=== PATIENT | male | born 1950 | race Caucasian/White ===

== ENCOUNTER 2016-11-29 23:18 | Emergency (ER) | payer MEDICARE, OTHER ==
[2016-11-29 23:56] LABS: Hematocrit 46.7 % (42.0-52.0); Hemoglobin 16.4 gm/dL (13.5-18.0); Mean Cell Volume 88.8 fl (78-100); Mean Corpuscular Hemoglobin 31.2 pg (27-31); Mean Corpuscular Hgb Conc 35.1 g/dl (32-36); Mean Platelet Volume 8.9 fl (6.0-9.5); Neutrophil # 3.6 K/mm3 (1.3-6.0); Neutrophil % 48.5 % (42-75.0); Platelet Count 236 K/mm3 (150-450); Red Blood Count 5.26 M/mm3 (4.7-6.0); Red Cell Distribution Width 13.5 % (11.5-14.0); White Blood Count 7.5 K/mm3 (4.0-10.5)
[2016-11-30 00:07] LABS: Prothrombin Time (Patient) 10.8 Seconds (9.4-11.4)
[2016-11-30 00:15] LABS: INR 1.04 INR (0.90-1.10); Partial Thrombolplastin Time 26.1 Seconds (24-32)
[2016-11-30 00:16] LABS: ALT 39 U/L (19-67); AST 23 U/L (0-48); Albumin * 3.2 gm/dl (3.4-5.0); Alkaline Phosphatase * 56 U/L (50-170); Anion Gap 6.7 mmol/L (6.8-13.8); BUN/Creatinine Ratio 9.8 (9.0-21.6); Bilirubin, Total 0.4 mg/dL (0.0-1.1); Blood Urea Nitrogen 13 mg/dL (6-23); Ca. Corrected For Albumin 9.4 mg/dL (8.4-10.2); Calcium * 9.1 mg/dL (7.9-10.9); Carbon Dioxide 33.5 mmol/L (24-32.6); Chloride 104 mmol/L (97-106); Glucose * 116 mg/dL (70-110); Potassium 3.2 mmol/L (3.4-4.6); Sodium 141 mmol/L (132-142); Total Protein 6.8 gm/dL (6.2-8.2); Troponin I Less than 0.017 ng/ml (0.00-0.10)
--- NOTE | 2016-11-30 00:55 | ERNOTE ---
Medical Problem HPI - General Chief Complaint: General Assessment Time Seen by Provider: 11/30/16 00:38 Source: patient, family Exam Limitations: no limitations - Immun/Allergies/Home Medications Immunizations: IMMUNIZATION HX Immunizations Up to Date Yes History of Influenza Vaccine Yes Hx Pneumococcal Vaccination Yes Allergies/Adverse Reactions: Allergies adhesive Adverse Reaction (Verified 11/29/16 23:28) Home Medications: HOME MEDICATIONS Amlodipine Besylate 10 mg PO DAILY 11/29/16 [Last Taken Unknown] Aspirin [Aspirin Chewable] 81 mg PO DAILY 11/29/16 [Last Taken Unknown] Fluticasone Propionate [Flovent Diskus] 1 puff IH DAILY 11/29/16 [Last Taken Unknown] Hydrochlorothiazide [Hydrodiuril] 25 mg PO DAILY 11/29/16 [Last Taken Unknown] Metoprolol Tartrate 50 mg PO DAILY 11/29/16 [Last Taken Unknown] Rosuvastatin Calcium 40 mg PO DAILY 11/29/16 [Last Taken Unknown] Sildenafil Citrate [Viagra] 100 mg PO PRN 11/29/16 [Last Taken Unknown] Venlafaxine HCl [Effexor Xr] 150 mg PO DAILY 11/29/16 [Last Taken Unknown] buPROPion HCL [Wellbutrin] 100 mg PO DAILY 11/29/16 [Last Taken Unknown] - History of Present History Narrative: pt feels short of breath just before he falls asleep (not when he lays down) and believes his heart rate is going down. He then has a panic attack and cannot sleep. he has not slept for 3 days Timing: getting worse Severity: moderate Review of Systems - Review of Systems Constitutional: Absent: recent illness, fever EYE: Present: no symptoms reported ENT: Present: no symptoms reported Respiratory: Present: See HPI, shortness of breath. Absent: cough, wheezing Cardiology: Absent: chest pain Gastrointestinal/Abdominal: Present: no symptoms reported Genitourinary: Present: no symptoms reported Musculoskeletal: Present: no symptoms reported Skin: Present: no symptoms reported Neurological: Absent: dizziness/light-headedness, weakness, numbness Endocrine: Present: no symptoms reported Hematologic/Lymphatic: Present: no symptoms reported Psych: Present: See HPI - Patient's Past Medical History Patient History - Medical: Depression Patient History - Cardiac/Respiratory: Coronary Heart Disease, Hypertension, Hyperlipidemia Patient History - Cancer: No Hx of Cancer - Social History Living Situations: home Smoking Status: Former smoker - Immunizations Immunizations Up to Date: Yes Hx Pneumococcal Vaccination: Yes History of Influenza Vaccine: Yes Physical Exam - Physical Exam General Appearance: Present: wd/wn, alert, no apparent distress Eye Exam: Normal inspection: bilateral, PERRL: bilateral Ears, Nose, Throat: Present: normal ENT inspection Neck: Present: normal inspection, nontender Respiratory: Present: no respiratory distress, normal breath sounds, lungs clear Cardiovascular/Chest: Present: regular rate, rhythm, no murmur Gastrointestinal/Abdominal: Present: normal bowel sounds, nontender, nondistended Extremity Exam: Present: normal inspection, normal range of motion, no edema Neurological Exam: Present: alert, oriented, normal mood/affect Skin Exam: Present: normal color, warm/dry ED Progress - Results and Orders Patient's Lab Results:: I have reviewed the patient's lab results. Results and Orders: Laboratory Tests 11/29/16 11/29/16 11/29/16 23:50 23:50 23:50 WBC 7.5 Hgb 16.4 Hct 46.7 Plt Count 236 PT 10.8 INR (Anticoag Therapy) 1.04 PTT ([place]) 26.1 Sodium 141 Potassium 3.2 L Chloride 104 Carbon Dioxide 33.5 H Anion Gap 6.7 L BUN 13 Creatinine 1.33 Est GFR (Non-Af Amer) 57 L BUN/Creatinine Ratio 9.8 Random Glucose 116 H Calcium 9.1 Calcium Adj for Albumin 9.4 Total Bilirubin 0.4 AST 23 ALT 39 Alkaline Phosphatase 56 Troponin I Less than 0.017 Total Protein 6.8 Albumin 3.2 L - Vital Signs Patient's Vital Signs:: I have reviewed the patient's vital signs. Vital Signs: Vital Signs 11/29/16 11/30/16 23:22 00:15 Temperature 36.9 C Pulse Rate 73 70 Respiratory 18 18 Rate Blood Pressure 187/101 174/78 O2 Sat by Pulse 95 96 Oximetry - X-Ray X-Ray #1 X-Ray: chest Interpretation: Interp. 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 Return to ER as needed
--- OUTSIDE RECORDS SUMMARY | 2016-11-30 01:05 | XMS REPORT | Continuity of Care Document ---
:1950 Author Organization [facility] ([facility]) [place] [address] Phone [phone] Care Team Providers Name Role Phone Provider, No-Primary Care Primary Care Provider Unavailable Source Comments This disclosure is being made pursuant to the Care Everywhere program, applicable federal and state laws, and may not contain all informaitonavailable regarding this patient.[facility] ([facility]) Active Allergies and Adverse Reactions Not on File Current Medications Prescription Sig. Disp. Refills Start Date End Date Status fluticasone 50 Use 2 Sprays Active mcg/Actuation nasal spray into both nostrils daily. rosuvastatin 40 mg tablet Take 40 mg by Active mouth every evening. buPROPion 100 mg tablet Take 100 mg by Active mouth 2 times daily. hydroCHLOROthiazide 25 mg Take 25 mg by Active tablet mouth daily. sildenafil (VIAGRA) 100 mg Take 100 mg by Active tablet mouth as needed. Take 1 hour prior to sexual activity. metoPROLol tartrate 50 mg Take 50 mg by Active tablet mouth 2 times daily. aspirin 81 mg EC tablet Take 81 mg by Active mouth daily. azithromycin 250 mg tablet Take 1 tablet 4 tablet 0 09/12/2016 Active (250 mg total) by mouth every 24 hours. amoxicillin-clavulanate Take 1 tablet 18 tablet 0 09/12/2016 Active 875-125 mg per tablet by mouth 2 times daily. Active Problems Not on file Most Recent Encounters Date Type Specialty Providers Description 09/12/2016 - Hospital Encounter Kevin Lozoya, Dx: Community 09/13/2016 Specialty MD acquired pneumonia (Primary Dx) Social History Tobacco Use Types Packs/Day Years Used Date Never Assessed Last Filed Vital Signs Vital Sign Reading Time Taken Blood Pressure 166/94 09/12/2016 11:24 PM [employer] Pulse 73 09/12/2016 11:22 PM [employer] Temperature 38.8 C (101.8 F) 09/12/2016 9:55 PM [employer] Respiratory Rate 18 09/12/2016 11:22 PM [employer] Height - - Weight - - Body Mass Index - - Oxygen Saturation 94% 09/12/2016 11:22 PM [employer] Plan of Care Health Maintenance Due Date Last Done Comments HCV Screening 1950 Hepatitis B Vaccine (1 of 3 - Primary Series) 1950 Tdap Vaccine 1962 Lipid Disorder Screening 1969 Td Vaccine 1969 Colonoscopy 01/12/2001 Prostate Cancer Screening 2001 Zoster Vaccine 2011 Pneumococcal Vaccine (1 of 2 - PCV13) 01/14/2016 Influenza Vaccine: Seasonal (#1) 02/08/2016 Results from Last 3 Months [facility] XR CHEST PA& LAT (24631) (09/12/2016 10:35 PM) Impressions -NORMAL CHEST. Narrative Radiology Consultation [facility] DEPARTMENT OF RADIOLOGY [facility] [address] [place], [place] [address] IP/OP/ER: __ER___ PA & LATERAL CHEST:Normal chest. [facility] LACTIC ACID, WHOLE BLOOD (09/12/2016 10:20 PM) Component Value Range VB LACTIC ACID 1.9 0.7-2.1 mmol/L Specimen Blood [facility] TROPONIN I (09/12/2016 10:20 PM) Component Value Range VB Troponin I <0.06 0-0.6 ng/mL Specimen Blood [facility] COMPREHENSIVE METABOLIC PANEL (CMP) (09/12/2016 10:20 PM) Component Value Range [facility] Sodium 142 137-145 mmol/L [facility] Potassium 3.5 3.4-5.1 mmol/L [facility] Chloride 99 98-107 mmol/L [facility] CO2 30 20-30 mmol/L [facility] Glucose 113(H) 60-110 mg/dL [facility] BUN 15 9-20 mg/dL [facility] Creatinine 1.46(H) 0.70-1.25 mg/dL [facility] Total Protein 7.6 6.3-8.2 g/dL [facility] Calcium 9.4 8.4-10.5 mg/dL [facility] Albumin 4.1 3.0-5.0 g/dL [facility] ALP 65 36-113 U/L [facility] ALT/SGPT 35 11-47 U/L [facility] AST/SGOT 28 17-59 U/L [facility] Calculated GFR 48(L) >60 mL/min/1.73 m2 [facility] Bilirubin, Total 0.8 0.2-1.3 mg/dL Specimen Blood [facility] CBC WITH DIFFERENTIAL (09/12/2016 10:20 PM) Component Value Range [facility] WBC 10.2(H) 3.6-9.4 th/mm3 [facility] RBC 5.69(H) 4.40-5.60 mil/mm3 [facility] HEMOGLOBIN 17.6(H) 13.8-17.0 g/dL [facility] HEMATOCRIT 49.9 41.0-51.0 % [facility] MEAN CORPUSCULAR VOLUME 87.7 84.0-98.0 fl [facility] MEAN CORPUSCULAR HGB 30.9 26.0-38.0 pg [facility] MEAN CORPUSCULAR HGB CONCENTRATION 35.3 32.0-36.0 g/dL [facility] PLATELET COUNT 201 150-350 th/mm3 [facility] Abs Neutrophils 6.87 2.60-7.00 th/mm3 [facility] Abs Lymphocytes 1.78 0.70-3.40 th/mm3 [facility] Abs Monocytes 1.44(H) 0.10-1.00 th/mm3 [facility] Abs Eosinophils 0.08 0.00-0.45 th/mm3 [facility] Abs Basophils 0.04 0.00-0.12 th/mm3 [facility] % Neutrophils 67.3 34.0-67.9 % [facility] % Lymphocytes 17.4(L) 21.8-53.1 % [facility] % Monocytes 14.1 0.0-15.0 % [facility] % Eosinophils 0.8 0.0-6.0 % [facility] % Basophils 0.4 0.0-2.0 % Specimen Blood
--- OUTSIDE RECORDS SUMMARY | 2016-11-30 01:05 | XMS REPORT | Continuity of Care Document ---
:1950 Demographics Phone Unavailable Preferred Language Unknown Marital Status Unknown Jain Affiliation Unknown Race Unknown Ethnic Group Unknown Author Organization [facility] Address Unavailable [address] [address] Care Team Providers Name Role Phone Unavailable Primary Care Provider Unavailable Source Comments This disclosure is being made pursuant to the makexyz program and maynot contain all information available regarding this patient.[facility] Active Allergies and Adverse Reactions Not on File Current Medications Be aware that medications may not be up to date as of this document. Alwaysverify current medications with the patient. Not on file Active Problems Not on file Social History Tobacco Use Types Packs/Day Years Used Date Never Assessed Plan of Care Health Maintenance Due Date Last Done Comments Retired-Pertussis Vaccine Adult 1970 Retired-Tetanus Vaccine Adult 1970 Colonoscopy 2001 Well Adult Visit 2001 Zoster Vaccine 60+ 2011 Retired-INFLUENZA VACCINE 03/10/2015 Results from Last 3 Months Not on file
[2016-11-30] MEDS ORDERED: ZOLPIDEM TARTRATE 5 MG TABLET ONE (01:52)
[2016-11-30] MEDS ORDERED: ZOLPIDEM TARTRATE 5 MG TABLET PO SCH (02:00)
[2016-11-30 02:17] VITALS: BP 168/88
== END 2016-11-30 02:04 | disposition home or self-care (01) ==
LOC: ER 23:18
DX: F41.9 Anxiety disorder, unspecified (principal); F51.04 Psychophysiologic insomnia; F32.9 Major depressive disorder, single episode, unspecified; I10 Essential (primary) hypertension; I51.9 Heart disease, unspecified; Z87.891 Personal history of nicotine dependence; R06.02 Shortness of breath